=== PATIENT | female | born 1975 | race African-American/Black ===

== ENCOUNTER 2017-03-17 10:39 | Emergency (ER) | payer SELFPAY | END 2017-03-17 11:08 | disposition home or self-care (01) | LOC: NAV ERS 10:39 | DX: M77.11 Lateral epicondylitis, right elbow (principal); I10 Essential (primary) hypertension; F41.9 Anxiety disorder, unspecified; F32.9 Major depressive disorder, single episode, unspecified; Z87.891 Personal history of nicotine dependence | CPT/HCPCS: 99283 ==

== ENCOUNTER 2018-08-20 16:26 | Emergency (ER) | payer OTHER, SELFPAY | END 2018-08-20 17:00 | disposition home or self-care (01) | LOC: NAV ERS 16:26 | DX: M25.531 Pain in right wrist (principal); I10 Essential (primary) hypertension; F41.9 Anxiety disorder, unspecified; F32.9 Major depressive disorder, single episode, unspecified; Z87.891 Personal history of nicotine dependence | CPT/HCPCS: 99283 ==

== ENCOUNTER 2018-09-01 16:00 | Emergency (ER) | payer OTHER | END 2018-09-01 16:42 | disposition home or self-care (01) | LOC: NAV ERS 16:00 | DX: J01.90 Acute sinusitis, unspecified (principal); I10 Essential (primary) hypertension; F41.9 Anxiety disorder, unspecified; F32.9 Major depressive disorder, single episode, unspecified; Z87.891 Personal history of nicotine dependence | CPT/HCPCS: 99283 ==

== ENCOUNTER 2018-12-23 09:30 | Emergency (ER) | payer OTHER, SELFPAY ==
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
== END 2018-12-23 10:35 | disposition home or self-care (01) ==
LOC: NAV ERS 09:30
DX: S93.421A Sprain of deltoid ligament of right ankle, initial encounter (principal); S93.601A Unspecified sprain of right foot, initial encounter; I10 Essential (primary) hypertension; F41.9 Anxiety disorder, unspecified; F32.9 Major depressive disorder, single episode, unspecified; Z87.891 Personal history of nicotine dependence; V03.90XA Pedestrian on foot injured in collision with car, pick-up truck or van, unspecified whether traffic or nontraffic accident, initial encounter
CPT/HCPCS: 99283